=== PATIENT | female | born 1955 | race African-American/Black ===

== ENCOUNTER → 2025-09-01 | Day surgery (SDC) | payer MEDICARE, MEDICAID ==
[~2025-09-01] VITALS: Ht 175.3 cm; Wt 107.5 kg
[~2025-09-01] MED LIST: ACETAMINOPHEN 1,000MG/100ML PREMIX IV PRN; ACETAMINOPHEN 1000MG/100ML 100 ML IV ONE; ATORVASTATIN CALCIUM 40MG TABLET PO SCH; FAMOTIDINE 20MG/2ML VIAL IV PRN; FENTANYL CITRATE/PF 50MCG/ML 2ML VIAL ONE; HYDRALAZINE 20MG/ML VIAL IV PRN; HYDROCHLOROTHIAZIDE 12.5MG CAPSULE PO SCH; HYDROCODONE/ACETAMINOPHEN 5/325MG TABLET PO NR; HYDROMORPHONE HCL/PF 1MG/ML INJ IV PRN; HYDROMORPHONE HCL/PF 1MG/ML INJ ONE; HYDROMORPHONE HCL/PF 2MG/ML INJ IV PRN; KETOROLAC 30MG/ML VIAL ONE; LABETALOL 5MG/ML 4ML INJ IV PRN; LIDOCAINE HCL/PF 1% 10 MG/ML 5ML VIAL ONE; LIP40 PO; LOSA1TAB40 PO; LOSARTAN 100 MG TABLET PO SCH; MEPERIDINE HCL/PF 25MG/ML CPJ IV PRN; MIDAZOLAM HCL 2 MG/2 ML VIAL ONE; ONDANSETRON HCL 4MG/2ML INJ IV PRN; ROCURONIUM BROMIDE 10MG/ML VIAL 5ML IV ONE; SEMA2.4P
[2025-09-01 11:12] VITALS: BP 141/86; PULSE 81; RESP 18
[2025-09-01] MEDS: HYDROCODONE/ACETAMINOPHEN 5/325MG TABLET PO ONE (11:12)
[2025-09-01] MEDS: ONDANSETRON HCL 4MG/2ML INJ IV PRN (17:04)
[2025-09-01] MEDS: HYDRALAZINE 20MG/ML VIAL IV PRN (17:06)
== END | disposition home or self-care (01) ==
LOC: OR 07:26
PROVIDERS: ATTEND Ophthalmology
DX: H02.102 Unspecified ectropion of right lower eyelid (principal); H02.105 Unspecified ectropion of left lower eyelid; I10 Essential (primary) hypertension; E78.5 Hyperlipidemia, unspecified; Z79.899 Other long term (current) drug therapy; Z98.890 Other specified postprocedural states
CPT/HCPCS: 67917 ×2; J1885; J3010; J0131; J1308; J0360; J2003; J2250; J2405; J3490; J1171